=== PATIENT | male | born 1975 | race Caucasian/White ===

== ENCOUNTER 2020-04-07 21:43 | Outpatient (REF) | payer BC, SELFPAY ==
[2020-04-07 21:31] LABS: Calculated LDL 166 mg/dL (<100); Cholesterol 242 mg/dL (<200); HDL Cholesterol 39 mg/dL (40-60); Triglyceride 185 mg/dL (<150)
== END 2020-04-07 22:03 ==
LOC: NCHCN 21:43
PROVIDERS: PCP Family Medicine; Visit Provider Nurse Practitioner Family
DX: E78.5 Hyperlipidemia, unspecified (principal)
CPT/HCPCS: 80061

== ENCOUNTER 2020-07-08 22:46 | Outpatient (REF) | payer BC, SELFPAY ==
[2020-07-11 16:34] LABS: Patient Race White; SARS-CoV-2 RNA Undetected (Undetected); SARS-CoV-2 Specimen Source Nasopharynx
== END 2020-07-08 23:06 ==
LOC: NCHCN 22:46
PROVIDERS: PCP Family Medicine; Visit Provider Nurse Practitioner Family
DX: Z20.828 Contact with and (suspected) exposure to other viral communicable diseases (principal)
CPT/HCPCS: U0003

== ENCOUNTER 2020-07-21 15:33 | Outpatient (REF) | payer BC, SELFPAY ==
[2020-07-24 23:10] LABS: Patient Race White; SARS-CoV-2 RNA Undetected (Undetected); SARS-CoV-2 Specimen Source Nasopharynx
== END 2020-07-21 15:53 ==
LOC: NCHCN 15:33
PROVIDERS: PCP Family Medicine; Visit Provider Nurse Practitioner Family
DX: Z20.828 Contact with and (suspected) exposure to other viral communicable diseases (principal)
CPT/HCPCS: U0003